=== PATIENT | male | born 1955 | race Caucasian/White ===

== ENCOUNTER 2016-11-21 10:40 | Outpatient (CLI) | payer OTHER ==
[~2016-11-21 10:40] MED LIST: SUBOXONE1 MI1 SL
--- NOTE | 2016-11-21 15:12 | DIAGNOSTIC IMAGING REPORT ---
PROCEDURE: CT ABD/PELVIS W/WO CONTRAST INDICATION: FLANK PAIN TECHNIQUE: Axial CT images through the abdomen and pelvis before and after uncomplicated administration of 125 ml Isovue through 300 contrast. Coronal and sagittal reformations were created. Axial delayed imaging was performed through the liver. COMPARISON: None. FINDINGS: Noncontrast: No evidence of left intrarenal or ureteral calcification. A 3.2 cm exophytic cyst arises from the left lateral lower pole. The few parapelvic cysts are present. No right-sided urinary calcification. No suspicious calcifications in the liver or spleen. A few cystic structures are present in the liver, the largest is a septated cyst measuring 3.3 cm in the left lobe. No suspicious pancreatic calcifications. No urinary bladder calcifications. A few dystrophic calcifications of the prostate gland are present. Contrast: Clear lung bases. No suspicious solid masses in the liver. A few tiny cystic structures are too small to accurately characterize. The largest is a septated cyst. The gallbladder, adrenal glands, spleen, pancreas, kidneys, retroperitoneal vessels, ureters, stomach, small bowel loops, and mesentery appear normal. Normal appendix. Normal amount of stool in the proximal colon. The transverse colon and descending colon are diffusely decompressed. Sigmoid colon and rectum are decompressed. No diverticula visible. No pericolonic inflammation. Pelvic vessels, decompressed urinary bladder, prostate and seminal vesicles appear normal. No adenopathy, mass, or free fluid. There is a 9 mm vague sclerotic focus in the left iliac bone, facet degenerative changes in the lower lumbar spine and mild degenerative endplate spurring. IMPRESSION: 1. No finding to suggest etiology of left flank pain. 2. Wispy 9 mm sclerotic focus in the left iliac bone. While this is most likely benign bone island, given the history of prostate cancer, bone scan should be considered. 3. Hepatic cysts.
== END 2016-11-21 23:00 ==
LOC: CT SRH 10:40
DX: R10.9 Unspecified abdominal pain (principal); K76.89 Other specified diseases of liver
CPT/HCPCS: 90047; 90074; 95059